=== PATIENT | male | born 1990 | race African-American/Black ===

== ENCOUNTER 2017-06-07 13:19 | Emergency (ER) | payer OTHER ==
[2017-06-07] MEDS: IBUPROFEN 600 MG TAB PO (13:52)
== END 2017-06-07 15:40 | disposition home or self-care (01) ==
LOC: FTE 13:19
DX: N50.811 Right testicular pain (principal)
CPT/HCPCS: 76870; 99284-25

== ENCOUNTER 2018-02-01 13:56 | Emergency (ER) | payer OTHER ==
[2018-02-01] MEDS ORDERED: HYDROmorphONE 0.5 MG/0.5 ML SYG IV (14:23)
[2018-02-01] MEDS ORDERED: HYDROmorphONE 0.5 MG/0.5 ML SYG (14:26)
[2018-02-01] MEDS: HYDROmorphONE 0.5 MG/0.5 ML SYG IV (14:29)
[2018-02-01] MEDS ORDERED: SOD CHLORIDE 0.9% 1,000 ML IV (14:30)
[2018-02-01] MEDS: SOD CHLORIDE 0.9% 1,000 ML IV ×2 (14:45→16:29)
[2018-02-01] MEDS ORDERED: ONDANSETRON 4 MG INJ (15:40)
[2018-02-01] MEDS: PROPOFOL 200 MG INJ IV (15:49)
[2018-02-01] MEDS: ONDANSETRON 4 MG INJ IV (16:29)
== END 2018-02-01 17:22 | disposition home or self-care (01) ==
LOC: E/R 13:56
DX: S43.015A Anterior dislocation of left humerus, initial encounter (principal); R40.2142 Coma scale, eyes open, spontaneous, at arrival to emergency department; R40.2362 Coma scale, best motor response, obeys commands, at arrival to emergency department; R40.2252 Coma scale, best verbal response, oriented, at arrival to emergency department; W21.05XA Struck by basketball, initial encounter; Y92.310 Basketball court as the place of occurrence of the external cause
CPT/HCPCS: 23650; 73030; 96361; 96374; 96375; 99285-25